=== PATIENT | female | born 1945 | race Caucasian/White ===

== ENCOUNTER 2017-01-10 09:13 | Outpatient (CLI) | payer MEDICARE, OTHER | END 2017-01-10 09:14 | disposition home or self-care (01) | DX: E78.2 Mixed hyperlipidemia (principal); E11.65 Type 2 diabetes mellitus with hyperglycemia ==

== ENCOUNTER 2017-01-26 10:57 | Outpatient (CLI) | payer MEDICARE, OTHER | END 2017-01-26 10:58 | disposition home or self-care (01) | DX: Z78.0 Asymptomatic menopausal state (principal); M85.88 Other specified disorders of bone density and structure, other site ==

== ENCOUNTER 2017-05-28 13:14 | Outpatient (CLI) | payer MEDICARE, OTHER | END 2017-05-28 13:15 | disposition home or self-care (01) | LOC: SC 13:14 | PROVIDERS: ATTEND Internal Medicine Pulmonary Disease | DX: G47.10 Hypersomnia, unspecified (principal); R06.83 Snoring; G47.8 Other sleep disorders | CPT/HCPCS: 99203; G0463; 99212 ==

== ENCOUNTER 2017-06-19 19:38 | Outpatient (CLI) | payer MEDICARE, OTHER | END 2017-06-19 19:39 | disposition home or self-care (01) | LOC: SC 19:38 | PROVIDERS: ATTEND Internal Medicine Pulmonary Disease | DX: G47.33 Obstructive sleep apnea (adult) (pediatric) (principal); G47.61 Periodic limb movement disorder; Z68.24 Body mass index [BMI] 24.0-24.9, adult | CPT/HCPCS: 95810 ==

== ENCOUNTER 2017-07-12 13:12 | Outpatient (CLI) | payer MEDICARE, OTHER | END 2017-07-12 13:13 | disposition home or self-care (01) | LOC: SC 13:12 | PROVIDERS: ATTEND Nurse Practitioner Family | DX: G47.33 Obstructive sleep apnea (adult) (pediatric) (principal); G47.61 Periodic limb movement disorder | CPT/HCPCS: 99214; G0463; 99212 ==

== ENCOUNTER 2017-07-18 11:16 | Outpatient (CLI) | payer MEDICARE, OTHER ==
[2017-07-18 18:52] LABS: CORTISOL 5.9 ug/dL
[2017-07-18 19:02] LABS: TOTAL T3 0.83 ng/mL (0.87-1.78)
[2017-07-18 19:13] LABS: THYROID STIMULATING HORMONE 1.11 uIU/mL (0.34-5.60)
== END 2017-07-18 11:17 | disposition home or self-care (01) ==
LOC: LAB.F 11:16
PROVIDERS: ATTEND Internal Medicine
DX: R53.83 Other fatigue (principal)
CPT/HCPCS: 36415; 82533; 84436; 84439; 84443; 84480; 84481

== ENCOUNTER 2017-08-23 10:50 | Outpatient (CLI) | payer MEDICARE, OTHER | END 2017-08-23 10:51 | disposition home or self-care (01) | LOC: SC 10:50 | PROVIDERS: ATTEND Nurse Practitioner Family | DX: G47.33 Obstructive sleep apnea (adult) (pediatric) (principal) | CPT/HCPCS: 99214; G0463; 99212 ==

== ENCOUNTER 2017-09-20 11:13 | Outpatient (CLI) | payer MEDICARE, OTHER | END 2017-09-20 11:14 | disposition home or self-care (01) | LOC: SC 11:13 | PROVIDERS: ATTEND Nurse Practitioner Family | DX: G47.33 Obstructive sleep apnea (adult) (pediatric) (principal) | CPT/HCPCS: 99214; G0463; 99212 ==

== ENCOUNTER 2018-01-29 14:46 | Outpatient (CLI) | payer MEDICARE, OTHER | END 2018-01-29 14:47 | disposition home or self-care (01) | LOC: SC 14:46 | PROVIDERS: ATTEND Nurse Practitioner Family | DX: G47.33 Obstructive sleep apnea (adult) (pediatric) (principal) | CPT/HCPCS: 99214; G0463; 99212 ==

== ENCOUNTER 2018-03-25 17:54 | Emergency (ER) | payer MEDICARE, OTHER ==
--- NOTE | 2018-03-25 18:41 | ED Physician Documentation ---
PD HPI UPPER EXT INJURY - Stated complaint Stated Complaint: WRIST INJURY - Chief complaint Chief Complaint: Ext Problem - History obtained from History obtained from: Patient - History of Present Illness Location: Left, Elbow, Wrist Type of injury: Fall (tripped over dog leashes and fell to the left, trying to catch fall with left hand.) Where injury occurred: Home Timing - onset: Today Timing - details: Abrupt onset, Still present Improved by: Rest Worsened by: Moving, Palpating Associated symptoms: Swelling. No: Weakness, Numbness Contributing factors: No: Anticoagulated, Prior ortho surgery Similar symptoms before: Has not had sx before Recently seen: Not recently seen Review of Systems Constitutional: denies: Fever Nose: denies: Rhinorrhea / runny nose, Congestion Throat: denies: Sore throat Cardiac: denies: Chest pain / pressure, Palpitations Respiratory: denies: Dyspnea, Cough GI: denies: Abdominal Pain, Nausea, Diarrhea Musculoskeletal: reports: Extremity pain. denies: Neck pain, Back pain Neurologic: denies: Focal weakness, Numbness, Head injury PD PAST MEDICAL HISTORY - Past Medical History Past Medical History: Yes Cardiovascular: High cholesterol Psych: Depression - Present Medications Home Medications: Ambulatory Orders Medication Instructions Recorded Confirmed Alprazolam [Xanax] 0.5 mg PO Q6H PRN #10 tablet 10/21/16 03/25/18 clonazePAM [Clonazepam] 0.25 mg PO BID 10/21/16 03/25/18 Aspirin 325 mg PO 03/25/18 Paroxetine HCl [Paxil] 20 mg PO DAILY 03/25/18 03/25/18 Pravastatin [Pravachol] 40 mg 03/25/18 - Allergies Allergies/Adverse Reactions: Allergies Allergy/AdvReac Type Severity Reaction Status Date / Time cephalexin monohydrate * Allergy Hives Verified 03/25/18 18:08 [From Keflex] Penicillins Allergy Hives Verified 03/25/18 18:08 - Social History Does the pt smoke?: No Smoking Status: Never smoker Does the pt drink ETOH?: No Does the pt have substance abuse?: No - Family History Family history: reports: Non contributory - Immunizations Immunizations are current?: Yes PD ED PE NORMAL - Vitals Vital signs reviewed: Yes - General General: Alert and oriented X 3, No acute distress, Well developed/nourished - HEENT HEENT: Atraumatic - Neck Neck: Supple, no meningeal sign, No bony TTP - Cardiac Cardiac: RRR, No murmur - Respiratory Respiratory: Clear bilaterally - Abdomen Abdomen: Soft, Non tender - Derm Derm: Normal color, Warm and dry - Extremities Extremities: Other (left wrist tender dorsally. Not tender in snuffbox per se. Left elbow with mild effusion and pain with rotational movement of forearm. Hurts for full extension as well. Shoulder not tender. ) - Neuro Neuro: Alert and oriented X 3, No motor deficit, No sensory deficit, Normal speech, Other (good color and pulses distally. ) Results - Vitals Vitals: Oxygen O2 Source Room air - Rads (name of study) wrist Radiology: Prelim report reviewed, EMP read contemporaneously (possible radial styloid fracture, nondipslaced) left elbow Radiology: Prelim report reviewed, EMP read contemporaneously (radial neck impacted without displacement nor angulation. ) PD MEDICAL DECISION MAKING - ED course Complexity details: reviewed results (radial neck impacted without displacement. Will treat with sling. Possible radial styloid fx; will give wrist splint. ), considered differential, d/w patient Departure - Departure Disposition: 01 Home, Self Care Clinical Impression: Fall from slip, trip, or stumble Qualifiers: Encounter type: initial encounter Qualified Code(s): W01.0XXA - Fall on same level from slipping, tripping and stumbling without subsequent striking against object, initial encounter Left wrist sprain Qualifiers: Encounter type: initial encounter Qualified Code(s): S63.502A - Unspecified sprain of left wrist, initial encounter Fracture of radial neck, left, closed Qualifiers: Encounter type: initial encounter Fracture alignment: nondisplaced Qualified Code(s): S52.135A - Nondisplaced fracture of neck of left radius, initial encounter for closed fracture Radial styloid fracture Qualifiers: Encounter type: initial encounter Fracture type: closed Fracture alignment: nondisplaced Laterality: left Qualified Code(s): S52.515A - Nondisplaced fracture of left radial styloid process, initial encounter for closed fracture Condition: Stable Record reviewed to determine appropriate education?: Yes Instructions: ED Fx Radial Head, ED Sprain Wrist Follow-Up: Sheila Medrano MD [Provider Admit Priv/Credential] - Comments: Wrist splint and sling for the arm and wrist to reduce motion and protect the injuries. Slight motion is okay based on comfort but no purposeful lifting, push, full range of motion as yet. Follow-up with orthopedics in about a week to week and a half. Call tomorrow for an appointment. Tylenol or anti- inflammatories such as naproxen or ibuprofen as needed for pains 3 to 4 times a day. Ice and rest for the elbow and wrist tonight to reduce swelling. Discharge Date/Time: 03/25/18 20:18
--- NOTE | 2018-03-25 19:27 | XRAY Report ---
EXAM: LEFT ELBOW RADIOGRAPHY EXAM DATE: 03/25/2018 07:09 PM. CLINICAL HISTORY: Fall, pain. COMPARISON: None. TECHNIQUE: 3 views. FINDINGS: Bones: Subtle nondisplaced impacted fracture of the radial neck. Otherwise unremarkable. Joints: Prominent distention of anterior and posterior fat pads. Soft Tissues: Unremarkable. IMPRESSION: Non-displaced radial neck fracture. [facility] Referring Provider Line: [phone] SITE ID: [id number]
--- NOTE | 2018-03-25 19:30 | XRAY Report ---
EXAM: LEFT WRIST RADIOGRAPHY EXAM DATE: 03/25/2018 07:10 PM. CLINICAL HISTORY: Fall, pain. COMPARISON: None. TECHNIQUE: 3 views. FINDINGS: Bones: Thickening and irregularity of the distal radial metaphysis with small marginal exostoses. Sub tle nondisplaced fracture at the base of the radial styloid process difficult to exclude. Otherwise u nremarkable. Joints: Widening of the distal radial ulnar space compatible with ligamentous disruption, acute versu s chronic. Soft Tissues: Minimal soft tissue swelling. Pronator fat pad not distended. IMPRESSION: Possible nondisplaced radial styloid process fracture versus chronic changes. [facility] Referring Provider Line: [phone] SITE ID: [id number]
[2018-03-25 20:20] VITALS: BP 139/80
== END 2018-03-25 20:18 | disposition home or self-care (01) ==
LOC: ED 17:54
DX: S63.502A Unspecified sprain of left wrist, initial encounter (principal); S52.135A Nondisplaced fracture of neck of left radius, initial encounter for closed fracture; S52.515A Nondisplaced fracture of left radial styloid process, initial encounter for closed fracture; W01.0XXA Fall on same level from slipping, tripping and stumbling without subsequent striking against object, initial encounter; Y92.009 Unspecified place in unspecified non-institutional (private) residence as the place of occurrence of the external cause; Z79.82 Long term (current) use of aspirin
CPT/HCPCS: 99283

== ENCOUNTER 2018-04-30 10:29 | Outpatient (CLI) | payer MEDICARE, OTHER | END 2018-04-30 10:30 | disposition home or self-care (01) | LOC: SC 10:29 | PROVIDERS: ATTEND Nurse Practitioner Family | DX: G47.33 Obstructive sleep apnea (adult) (pediatric) (principal) | CPT/HCPCS: 99214; G0463; 99212 ==

== ENCOUNTER 2018-06-17 08:00 | Outpatient (CLI) | payer MEDICARE, OTHER ==
[2018-06-17 18:02] LABS: BASOPHILS % (AUTO) 0.8 %; EOSINOPHILS # (AUTO) 0.1 10^3/uL (0.0-0.7); EOSINOPHILS % (AUTO) 1.9 %; HGB - HEMOGLOBIN 13.7 g/dL (12.0-16.0); LYMPHOCYTES # (AUTO) 1.4 10^3/uL (1.5-3.5); LYMPHOCYTES % (AUTO) 26.3 %; MEAN CORPUSCULAR HGB CONC 33.7 g/dL (32.0-36.0); MEAN CORPUSCULAR VOLUME 89.1 fL (81.0-99.0); MEAN PLATELET VOLUME 7.9 fL (7.9-10.8); MONOCYTES # (AUTO) 0.4 10^3/uL (0.0-1.0); NEUTROPHILS # (AUTO) 3.3 10^3/uL (1.5-6.6); PLT - PLATELET COUNT 210 10^3/uL (130-450); RED BLOOD COUNT 4.57 10^6/uL (4.20-5.40); RED CELL DISTRIBUTION WIDTH 15.2 % (12.0-15.0); WHITE BLOOD COUNT 5.1 x10^3/uL (4.8-10.8)
[2018-06-17 19:13] LABS: ALBUMIN 3.7 g/dL (3.2-5.5); ALBUMIN/GLOBULIN RATIO 1.4 (1.0-2.2); ALKALINE PHOSPHATASE 63 IU/L (42-121); ALT ALANINE AMINOTRANSFERASE 35 IU/L (10-60); AST ASPARTATE AMINOTRANSFERASE 31 IU/L (10-42); BILIRUBIN,TOTAL 0.7 mg/dL (0.2-1.0); BUN - BLOOD UREA NITROGEN 15 mg/dL (6-20); CALCIUM 9.7 mg/dL (8.5-10.3); CARBON DIOXIDE - CO2 29 mmol/L (21-32); CHLORIDE 104 mmol/L (101-111); CHOL/HDL RATIO 4.2 (<4.4); CHOLESTEROL 226 mg/dL; CREATININE 0.9 mg/dL (0.4-1.0); GFR - MDRD 62 (>89); GLUCOSE 95 mg/dL (70-100); HDL CHOLESTEROL 54 mg/dL; LDL CHOLESTEROL,CALCULATED 142 mg/dL; LDL/HDL RATIO 2.6 (<4.4); SODIUM 137 mmol/L (135-145); TOTAL PROTEIN 6.4 g/dL (6.7-8.2); VLDL CHOLESTEROL 30 mg/dL
[2018-06-17 20:25] LABS: HB2 TOTAL 14.5 g/dL; HEMOGLOBIN A1C 0.56 g/dL; HEMOGLOBIN A1C % 5.7 % (4.6-6.2)
== END 2018-06-17 08:01 | disposition home or self-care (01) ==
LOC: LAB.F 08:00
PROVIDERS: ATTEND Internal Medicine
DX: E78.5 Hyperlipidemia, unspecified (principal); Z79.899 Other long term (current) drug therapy; E11.65 Type 2 diabetes mellitus with hyperglycemia; M85.80 Other specified disorders of bone density and structure, unspecified site; E88.81 Metabolic syndrome and other insulin resistance; R53.83 Other fatigue
CPT/HCPCS: 36415; 80053; 80061; 82306; 83036; 83721; 85025

== ENCOUNTER 2018-07-04 11:32 | Outpatient (CLI) | payer MEDICARE, OTHER | END 2018-07-04 11:33 | disposition home or self-care (01) | LOC: DI.N 11:32 | PROVIDERS: ATTEND Internal Medicine | DX: Z12.31 Encounter for screening mammogram for malignant neoplasm of breast (principal) | CPT/HCPCS: 77067 ==

== ENCOUNTER 2018-08-19 11:36 | Outpatient (CLI) | payer MEDICARE, OTHER ==
[2018-08-19 18:23] LABS: ALT ALANINE AMINOTRANSFERASE 40 IU/L (10-60); AST ASPARTATE AMINOTRANSFERASE 37 IU/L (10-42); LDL CHOLESTEROL,DIRECT 62 mg/dL
== END 2018-08-19 11:37 | disposition home or self-care (01) ==
LOC: LAB.F 11:36
PROVIDERS: ATTEND Internal Medicine
DX: E78.5 Hyperlipidemia, unspecified (principal); Z79.899 Other long term (current) drug therapy
CPT/HCPCS: 36415; 83721; 84450; 84460

== ENCOUNTER 2018-12-21 20:43 | Emergency (ER) | payer MEDICARE, OTHER ==
[2018-12-21] MEDS ORDERED: KETOROLAC 60 MG/2 ML VIAL IM STA (21:24)
[2018-12-21] MEDS ORDERED: DEXAMETHASONE 10 MG/ML VIAL PO STA (21:24)
--- NOTE | 2018-12-21 21:28 | ED Physician Documentation ---
PD HPI TRUNK INJURY - Stated complaint Stated Complaint: GLF/L SIDE THORACOLUMBAR PX - Chief complaint Chief Complaint: Trauma Ch/Bk - History obtained from History obtained from: Patient, Family - History of Present Illness Location: Posterior chest, Mid back Type of injury: Fall Timing - onset: How many days ago (3) Timing - duration: Days (3) Timing - details: Abrupt onset, Still present Quality: Pain, Sharp Improved by: Rest, Immobilization Worsened by: Moving, Palpating Associated symtptoms: Discoloration. No: Weakness, Numbness, Tingling Contributing factors: No: Anticoagulated Where injury occured: Home Similar symptoms before: Has not had sx before Recently seen: Not recently seen - Additional information Additional information: Previously well 73-year-old female was in her home tying her shoe with her foot up on something and she fell over onto her left side injuring her left lower back. She has a bruise to the area and today she had a sneeze and had sudden onset of severe pain. She has been unable to get comfortable since the sneezing episode. She does state that she felt the pain was a bit worse this morning when she woke up but that she has been able to sleep the past 3 nights. Review of Systems Constitutional: denies: Fever, Chills, Myalgias Eyes: denies: Decreased vision Ears: denies: Ear pain Nose: denies: Rhinorrhea / runny nose, Congestion Throat: denies: Sore throat Cardiac: reports: Chest pain / pressure. denies: Palpitations, Pedal edema, Calf pain Respiratory: denies: Dyspnea, Cough GI: denies: Abdominal Pain, Nausea, Vomiting, Constipation, Diarrhea : denies: Dysuria, Frequency Skin: denies: Rash Musculoskeletal: reports: Back pain. denies: Neck pain, Extremity pain PD PAST MEDICAL HISTORY - Past Medical History Cardiovascular: High cholesterol Psych: Depression - Present Medications Home Medications: Ambulatory Orders Medication Instructions Recorded Confirmed Alprazolam [Xanax] 0.5 mg PO Q6H PRN #10 tablet 10/21/16 03/25/18 clonazePAM [Clonazepam] 0.25 mg PO BID 10/21/16 03/25/18 Aspirin 325 mg PO 03/25/18 Paroxetine HCl [Paxil] 20 mg PO DAILY 03/25/18 03/25/18 Pravastatin [Pravachol] 40 mg 03/25/18 Hydrocodone/Acetaminophen 1 - 2 each PO Q6H PRN #14 tablet 12/21/18 [Hydrocodon-Acetaminophen 5-325] - Allergies Allergies/Adverse Reactions: Allergies Allergy/AdvReac Type Severity Reaction Status Date / Time cephalexin monohydrate * Allergy Hives Verified 12/21/18 20:56 [From Keflex] Penicillins Allergy Hives Verified 12/21/18 20:56 - Social History Does the pt smoke?: No Smoking Status: Never smoker Does the pt drink ETOH?: No Does the pt have substance abuse?: No - Immunizations Immunizations are current?: Yes PD ED PE NORMAL - Vitals Vital signs reviewed: Yes (hypertensive ) - General General: Alert and oriented X 3, No acute distress, Well developed/nourished - HEENT HEENT: Atraumatic, PERRL, EOMI - Neck Neck: Supple, no meningeal sign, No bony TTP - Cardiac Cardiac: RRR, No murmur - Respiratory Respiratory: No respiratory distress, Clear bilaterally, Other (There is a bruise with ecchymosis consistent with 3 days dating over the left lower ribs posteriorly. The area is markedly tender to palpation. 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, No motor deficit, No sensory deficit, Normal speech Eye Opening: Spontaneous Motor: Obeys Commands Verbal: Oriented GCS Score: 15 - Psych Psych: Normal mood, Normal affect Results - Vitals Vitals: Vital Signs - 24 hr 12/21/18 20:45 Temperature 36.0 C L Heart Rate 67 Respiratory 16 Rate Blood Pressure 143/94 H O2 Saturation 96 Oxygen O2 Source Room air - Rads (name of study) left ribs and PA chest Radiology: Prelim report reviewed (Impression: Negative chest and rib radiography.), EMP read indepedently, See rad report PD MEDICAL DECISION MAKING - ED course Complexity details: reviewed results, re-evaluated patient, considered differential, d/w patient, d/w family ED course: 73-year-old female with acute contusion to the chest wall 3 days ago has marked increase in her pain with a sneezing episode and does not have evidence of a fracture on plain film x-ray of the chest. She is administered Toradol IM and dexamethasone and we will place her on some pain medication. Departure - Departure Disposition: 01 Home, Self Care Clinical Impression: Chest wall contusion Qualifiers: Encounter type: initial encounter Laterality: left Qualified Code(s): S20.212A - Contusion of left front wall of thorax, initial encounter Condition: Stable Instructions: ED Contusion Rib, ED Contusion Vs Minor Fx Rib Follow-Up: Kayden León MD [Primary Care Provider] - Prescriptions: Hydrocodone/Acetaminophen [Hydrocodon-Acetaminophen 5-325] 1 - 2 each PO Q6H PRN #14 tablet PRN Reason: pain
--- NOTE | 2018-12-21 21:57 | XRAY Report ---
Reason: fall L postero-lateral rib pain Procedure Date: 12/21/2018 Accession Number: [id number] / [id number] Procedure: XR - Ribs w/PA Chest LT CPT Code: FULL RESULT: EXAM: LEFT RIB RADIOGRAPHY EXAM DATE: 12/21/2018 09:48 PM. CLINICAL HISTORY: Fall, pain COMPARISON: None. TECHNIQUE: 1 view of the chest and 2 views of the ribs. FINDINGS: Bones: Normal. No fracture or bone lesion. Lungs: No focal opacities. No pneumothorax. No pleural effusions. Mediastinum: Heart and mediastinal contours are unremarkable. Other: None. IMPRESSION: Negative chest and rib radiography. [facility]
[2018-12-21] MEDS ORDERED: HYDROcod/ACET 5/325 Prepack 4 PO STA (22:04)
[2018-12-21 22:39] VITALS: BP 152/74
== END 2018-12-21 22:30 | disposition home or self-care (01) ==
LOC: ED 20:43
DX: S20.212A Contusion of left front wall of thorax, initial encounter (principal); W19.XXXA Unspecified fall, initial encounter; Y92.009 Unspecified place in unspecified non-institutional (private) residence as the place of occurrence of the external cause; E78.00 Pure hypercholesterolemia, unspecified
CPT/HCPCS: 96372; 99283

== ENCOUNTER 2019-05-06 05:58 | Day surgery (SDC) | payer MEDICARE, OTHER ==
[2019-05-06] MEDS ORDERED: LACTATED RINGERS 1,000 ML IV ONE ×2 (06:35→08:02)
--- NOTE | 2019-05-06 07:12 | ANESTHESIA ---
Pre-Anesthesia VS, & Labs - Diagnosis right middle trigger finger - Procedure right middle trigger finger release Vital Signs: Temp Pulse Resp BP Pulse Ox 36.2 C L 62 12 158/84 H 95 05/06/19 06:36 05/06/19 06:36 05/06/19 06:36 05/06/19 06:36 05/06/19 06:36 Height 5 ft 6 in Weight (kg) 81 kg Body Mass Index 26.6 - NPO >8 hours - Is Patient ?: Not Applicable Home Medications and Allergies Home Medications: Ambulatory Orders Cholecalciferol [Vitamin D3] 5,000 unit PO DAILY 05/01/19 Mirtazapine 7.5 mg PO QPM 05/01/19 Rosuvastatin Calcium 40 mg PO QPM 05/01/19 hydrOXYzine HCl [Hydroxyzine HCl] 10 mg PO PRN PRN 05/01/19 Aspirin 325 mg PO DAILY 03/25/18 Paroxetine HCl [Paxil] 20 mg PO DAILY 03/25/18 Cholecalciferol [Vitamin D3] 5,000 unit PO DAILY 05/01/19 Mirtazapine 7.5 mg PO QPM 05/01/19 Rosuvastatin Calcium 40 mg PO QPM 05/01/19 hydrOXYzine HCl [Hydroxyzine HCl] 10 mg PO PRN PRN 05/01/19 Allergies/Adverse Reactions: Allergies Allergy/AdvReac Type Severity Reaction Status Date / Time cephalexin monohydrate * Allergy Hives Verified 12/21/18 20:56 [From Keflex] Penicillins Allergy Hives Verified 12/21/18 20:56 metformin AdvReac Nausea Verified 05/01/19 12:09 Anes History & Medical History - Anesthetic History Anesthesia Complications: reports: Post-Operative Nausea/Vomiting Family history of Anesthesia Complications: Denies Family history of Malignant Hyperthermia: Denies - Medical History Cardiovascular: reports: High cholesterol Pulmonary: reports: Sleep apnea Gastrointestinal: reports: None Urinary: reports: None Musculoskeletal: reports: Osteoarthritis Endocrine/Autoimmune: reports: HyPOthyroidism Skin: reports: Eczema Smoking Status: Never smoker - Surgical History General: Appendectomy, Colonoscopy Eyes Ears Nose Throat (EENT): Cataracts, Tonsil/Adenoidectomy Gynecologic: Hysterectomy, Other Orthopedic: Arthroscopic surgery, Other Exam General: Alert, Oriented x3, Cooperative, No acute distress Dental: Other (bridge) Mouth Openin Fingerbreadth Neck Mobility: Normal Mallampati classification: II Thyromental Distance: 4-6 cm Respiratory: Lungs clear, Normal breath sounds, No respiratory distress, No accessory muscle use Cardiovascular: Regular rate, Normal S1, Normal S2, No murmurs Plan Anesthesia Type: MAC Consent for Procedure(s) Verified and Reviewed: Yes Code Status: Attempt Resuscitation ASA classification: 2-Mild systemic disease Is this case an emergency?: No
[2019-05-06] MEDS ORDERED: MIDAZOLAM 2 MG/2 ML VIAL IVP ONE (07:30)
[2019-05-06] MEDS ORDERED: fentaNYL 100 MCG/2 ML VIAL IVP ONE (07:30)
[2019-05-06] MEDS ORDERED: LIDOCAINE-MPF 2% 5 ML VIAL IM ONE (07:30)
[2019-05-06] MEDS ORDERED: PROPOFOL 200 MG/20 ML VIAL IVP ONE (07:30)
[2019-05-06] MEDS ORDERED: methylPREDNISolone ACETATE 40 MG/ML VIAL ONE (07:36)
[2019-05-06] MEDS ORDERED: BUPIVACAINE 0.25%-EPI 1:200000 PF 30 ML VIAL SUBQ ONE ×2 (07:47→07:48)
[2019-05-06] MEDS ORDERED: HYDROcod/ACETAM 5/325 MG TABLET PO PRN (08:06)
[2019-05-06 08:29] VITALS: BP 120/60
== END 2019-05-06 05:59 | disposition home or self-care (01) ==
LOC: SDS 05:58
PROVIDERS: ATTEND Orthopaedic Surgery
PROC: 3E0U33Z Introduction of Anti-inflammatory into Joints, Percutaneous Approach (ICD-10-PCS; 2019-05-06)
PROC: 0LN70ZZ Release Right Hand Tendon, Open Approach (ICD-10-PCS; principal; 2019-05-06 07:30)
DX: M65.332 Trigger finger, left middle finger (principal); M19.041 Primary osteoarthritis, right hand; E78.00 Pure hypercholesterolemia, unspecified; G47.30 Sleep apnea, unspecified; E03.9 Hypothyroidism, unspecified; F41.9 Anxiety disorder, unspecified; E55.9 Vitamin D deficiency, unspecified; M85.80 Other specified disorders of bone density and structure, unspecified site; Z79.82 Long term (current) use of aspirin; Z87.891 Personal history of nicotine dependence

== ENCOUNTER 2019-06-18 11:54 | Emergency (ER) | payer MEDICARE, OTHER ==
--- NOTE | 2019-06-18 12:30 | ED Physician Documentation ---
History of Present Illness - Stated complaint Stated Complaint: FEET SWELLING - Chief complaint Chief Complaint: Cardiac - History obtained from History obtained from: Patient - History of Present Illness Timing: How many days ago (3) Pain level max: 0 Pain level now: 0 - Additonal information Additional information: 73-year-old female presents to the emergency department stating that her blood pressure has been higher than usual over the past few days. She normally checks it every few months but has been checking it several times a day recently. She also states that her ankles are more swollen than usual. She was on a keto diet to lose weight but stopped this recently. She is asymptomatic here. Nothing makes it better or worse Review of Systems Constitutional: denies: Fever, Chills Nose: denies: Rhinorrhea / runny nose, Congestion Throat: denies: Sore throat Cardiac: denies: Chest pain / pressure, Palpitations Respiratory: denies: Cough GI: denies: Nausea, Vomiting, Diarrhea Skin: denies: Rash Musculoskeletal: denies: Neck pain, Back pain Neurologic: denies: Headache PD PAST MEDICAL HISTORY - Past Medical History Cardiovascular: High cholesterol Respiratory: Sleep apnea Endocrine/Autoimmune: HyPOthyroidism GI: None : None HEENT: None Psych: Depression, Anxiety, Panic attacks Musculoskeletal: Osteoarthritis Derm: Eczema - Past Surgical History General: Appendectomy, Colonoscopy Ortho: Arthroscopic surgery, 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, Other HEENT: Cataracts, Tonsil/Adenoidectomy - Present Medications Home Medications: Ambulatory Orders Medication Instructions Recorded Confirmed Aspirin 325 mg PO DAILY 03/25/18 05/01/19 Paroxetine HCl [Paxil] 20 mg PO DAILY 03/25/18 05/06/19 Cholecalciferol [Vitamin D3] 5,000 unit PO DAILY 05/01/19 05/06/19 Mirtazapine 7.5 mg PO QPM 05/01/19 05/06/19 Rosuvastatin Calcium 40 mg PO QPM 05/01/19 05/06/19 hydrOXYzine HCl [Hydroxyzine HCl] 10 mg PO PRN PRN 05/01/19 05/06/19 - Allergies Allergies/Adverse Reactions: Allergies Allergy/AdvReac Type Severity Reaction Status Date / Time cephalexin monohydrate * Allergy Hives Verified 06/18/19 12:05 [From Keflex] Penicillins Allergy Hives Verified 06/18/19 12:05 metformin AdvReac Nausea Verified 06/18/19 12:05 - Social History Does the pt smoke?: No Smoking Status: Never smoker Does the pt drink ETOH?: No Does the pt have substance abuse?: No - Immunizations Immunizations are current?: Yes PD ED PE NORMAL - Vitals Vital signs reviewed: Yes - General General: Alert and oriented X 3, No acute distress, Well developed/nourished - HEENT HEENT: PERRL, Moist mucous membranes - Neck Neck: Supple, no meningeal sign - Cardiac Cardiac: RRR, Strong equal pulses - Respiratory Respiratory: No respiratory distress, Clear bilaterally - Abdomen Abdomen: Soft, Non tender, Non distended - Derm Derm: Warm and dry - Extremities Extremities: Other (trace edema BLE) - Neuro Neuro: Alert and oriented X 3 - Psych Psych: Normal mood, Normal affect Results - Vitals Vitals: Vital Signs - 24 hr 06/18/19 12:03 Temperature 36.8 C Heart Rate 64 Respiratory 18 Rate Blood Pressure 137/72 H O2 Saturation 98 Oxygen O2 Source Room air PD MEDICAL DECISION MAKING - ED course Complexity details: considered differential, d/w patient, d/w family ED course: 73-year-old female with a symptomatic hypertension and trace peripheral edema. No acute emergency medical condition at this time. We will have her follow-up with her doctor for further care. Patient counseled regarding signs and symptoms for which I believe and urgent re-evaluation would be necessary. Patient with good understanding of and agreement to plan and is comfortable going home at this time This document was made in part using voice recognition software. While efforts are made to proofread this document, sound alike and grammatical errors may occur. Departure - Departure Disposition: 01 Home, Self Care Clinical Impression: Peripheral edema Hypertension Qualifiers: Hypertension type: unspecified Qualified Code(s): I10 - Essential (primary) hypertension Condition: Good Instructions: ED Hypertension Poss, ED Edema Legs Bilateral Follow-Up: Charla Harmon ARNP, [employer] [Primary Care Provider] - Comments: Return if you worsen. Follow-up with your doctor for further care. Your blood pressure has decreased today. There is an adam called [employer] you can download if you would like more information on a plant based diet by the physicians committee for responsible medicine.
[2019-06-18 12:50] VITALS: BP 154/96
== END 2019-06-18 12:30 | disposition home or self-care (01) ==
LOC: ED 11:54
DX: I10 Essential (primary) hypertension (principal); R60.0 Localized edema
CPT/HCPCS: 99282; 99284

== ENCOUNTER 2021-01-24 00:05 | Emergency (ER) | payer MEDICARE, OTHER ==
[2021-01-24 00:24] VITALS: BP 162/85
[2021-01-24] MEDS ORDERED: IBUPROFEN 600 MG TABLET PO STA (00:25)
--- NOTE | 2021-01-24 01:53 | ED Physician Documentation ---
History of Present Illness - Stated complaint Stated Complaint: R ARM PX - Chief complaint Chief Complaint: Trauma Hd/Nk - History obtained from History obtained from: Patient - Additonal information Additional information: 75-year-old woman on baby aspirin only presents status post mechanical fall from standing after tripping over her dog late this evening onto her right face and head falling to the outstretched hand on the right side. Patient sustained sudden onset pain to the right shoulder that is constant, worse with movement, radiating down the arm, aching, severe, associated with mild swelling. She also bumped her right cheekbone but denies pain. Denies LOC or head trauma. Denies vision changes or other neuro deficits. Review of Systems Ten Systems: 10 systems reviewed and negative Eyes: denies: Loss of vision Skin: reports: Abrasion (s) Musculoskeletal: reports: Extremity pain, Joint pain. 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, Other HEENT: Cataracts, Tonsil/Adenoidectomy - Present Medications Home Medications: Ambulatory Orders Medication Instructions Recorded Confirmed Aspirin 325 mg PO DAILY 03/25/18 05/01/19 PARoxetine HCl [Paxil] 20 mg PO DAILY 03/25/18 05/06/19 Cholecalciferol [Vitamin D3] 5,000 unit PO DAILY 05/01/19 05/06/19 Mirtazapine 7.5 mg PO QPM 05/01/19 05/06/19 Rosuvastatin Calcium 40 mg PO QPM 05/01/19 05/06/19 hydrOXYzine HCL [Hydroxyzine HCl] 10 mg PO PRN PRN 05/01/19 05/06/19 oxyCODONE/ACET 5/325 [Percocet 5 1 each PO Q4-6H PRN #9 tablet 01/24/21 mg/325 mg] - Allergies Allergies/Adverse Reactions: Allergies Allergy/AdvReac Type Severity Reaction Status Date / Time cephalexin monohydrate * Allergy Hives Verified 01/24/21 00:24 [From Keflex] Penicillins Allergy Hives Verified 01/24/21 00:24 metformin AdvReac Nausea Verified 01/24/21 00:24 - Social History Does the pt smoke?: No Smoking Status: Never smoker Does the pt drink ETOH?: No Does the pt have substance abuse?: No - Immunizations Immunizations are current?: Yes PD ED PE NORMAL - Vitals Vital signs reviewed: Yes - General General: Alert and oriented X 3, No acute distress, Well developed/nourished - HEENT HEENT: Atraumatic, PERRL, EOMI - Neck Neck: No bony TTP - Cardiac Cardiac: RRR - Respiratory Respiratory: No respiratory distress, Clear bilaterally - Abdomen Abdomen: Non tender, Non distended - Back Back: No spinal TTP - Derm Derm: Normal color, Warm and dry - Extremities Extremities: Other (R shoulder tender with rom. R proximal humerus ttp. 2+ BL radial pulses. normal strength, rom, cap refill, sensation) - Neuro Neuro: Alert and oriented X 3, No motor deficit, No sensory deficit - Psych Psych: Normal mood, Normal affect Results - Vitals Vitals: Vital Signs - 24 hr 01/24/21 00:05 Temperature 36.0 C L Heart Rate 63 Respiratory 18 Rate Blood Pressure 162/85 H O2 Saturation 100 Oxygen O2 Source Room air PD MEDICAL DECISION MAKING - ED course ED course: 75-year-old woman presents with proximal humerus fracture, no neuro deficits on exam. We will have her follow-up with orthopedics in 1 week. Coaptation splint and sling applied. Strict return precautions given. Departure - Departure Disposition: 01 Home, Self Care Clinical Impression: Proximal humerus fracture, Fall, Abrasion of face Condition: Stable Instructions: Humerus Fx Follow-Up: Skip Lorenzo MD [Provider Admit Priv/Credential] - Prescriptions: oxyCODONE/ACET 5/325 [Percocet 5 mg/325 mg] 1 each PO Q4-6H PRN #9 tablet PRN Reason: Pain Comments: You were seen in the emergency department for a fall. You have a right shoulder fracture at the humerus, which is the large bone connecting your shoulder to your elbow. A splint was applied and you should continue to wear it and a sling until you follow-up with orthopedics next week. It is possible that you will need surgery, but sometimes these breaks (fractures) can heal without operations. Take ibuprofen 3 pills every 6 hours as needed for pain and put ice on it for 20 minutes every hour. Try to keep the shoulder still as much as possible. Return to the emergency department if you experience any numbness in your fingers or inability move the fingers. Return for any new or worsening symptoms or other concerns.
--- NOTE | 2021-01-24 08:57 | XRAY Report ---
PROCEDURE: Shoulder 2 View RT INDICATIONS: shoulder pain TECHNIQUE: 2 views of the shoulder were acquired. COMPARISON: None. FINDINGS: Bones: Comminuted fracture involving the right humeral head and neck. Visualized ribs appear intact. Soft tissues: No suspicious soft tissue calcifications. IMPRESSION: Proximal right humerus fracture. Reviewed by: Shannen Leyva MD, PhD on 01/24/2021 8:56 AM PDT Approved by: Shannen Leyva MD, PhD on 01/24/2021 8:56 AM PDT Station ID: [id number]
--- NOTE | 2021-01-24 08:58 | XRAY Report ---
PROCEDURE: Humerus RT INDICATIONS: foosh TECHNIQUE: 3 views of the humerus were acquired. COMPARISON: None FINDINGS: Bones: Comminuted fracture involving the right humeral head and neck. Distal fracture fragment is dis placed medially and proximally. Soft tissues: No suspicious soft tissue calcifications. IMPRESSION: Comminuted proximal right humerus fracture. Reviewed by: Shannen Leyva MD, PhD on 01/24/2021 8:57 AM PDT Approved by: Shannen Leyva MD, PhD on 01/24/2021 8:57 AM PDT Station ID: [id number]
--- NOTE | 2021-01-24 08:59 | XRAY Report ---
PROCEDURE: Forearm RT INDICATIONS: foosh TECHNIQUE: 2 views of the forearm were acquired. COMPARISON: None FINDINGS: Bones: No fractures or dislocations. No suspicious bony lesions. Mild radiocarpal joint osteoarthri tis. Soft tissues: No suspicious soft tissue calcifications or masses. IMPRESSION: No fracture. No acute osseous lesion. If there persistent symptoms or continued clinical concern for pathology, then repeat plain film radiographs (7-10 days) or advanced imaging (CT, MR, bone scan) berenice uld be considered for further evaluation. Reviewed by: Shannen Leyva MD, PhD on 01/24/2021 8:57 AM PDT Approved by: Shannen Leyva MD, PhD on 01/24/2021 8:57 AM PDT Station ID: [id number]
== END 2021-01-24 02:43 | disposition home or self-care (01) ==
LOC: ED 00:05
DX: S42.201A Unspecified fracture of upper end of right humerus, initial encounter for closed fracture (principal); W01.0XXA Fall on same level from slipping, tripping and stumbling without subsequent striking against object, initial encounter
CPT/HCPCS: 73030; 73060; 73090; 99283; 99284; A9270

== ENCOUNTER 2021-01-31 07:00 | Outpatient (CLI) | payer MEDICARE, OTHER ==
--- NOTE | 2021-01-31 14:04 | XRAY Report ---
PROCEDURE: Shoulder 3 View RT INDICATIONS: RIGHT PROXIMAL HUMERUS FRACTURE TECHNIQUE: 3 views of the shoulder were acquired. COMPARISON: X-ray shoulder 01/24/2021 FINDINGS: Bones: There is a mildly displaced comminuted fracture of the right humeral head and neck. Fracture d oes extend to the greater tuberosity. Alignment is stable compared to prior exam. No suspicious bony lesions. Visualized ribs appear intact. Soft tissues: No suspicious soft tissue calcifications. IMPRESSION: Right humeral head and neck fracture with stable alignment. No definitive visualized hea ling. Reviewed by: Lori Espinoza MD on 01/31/2021 2:03 PM PDT Approved by: Lori Espinoza MD on 01/31/2021 2:03 PM PDT Station ID: [id number]
== END 2021-01-31 23:59 | disposition home or self-care (01) ==
LOC: DI.N 07:00
PROVIDERS: ATTEND Physician Assistant
DX: S42.291A Other displaced fracture of upper end of right humerus, initial encounter for closed fracture (principal)

== ENCOUNTER 2021-02-14 07:00 | Outpatient (CLI) | payer MEDICARE, OTHER ==
--- NOTE | 2021-02-14 12:37 | XRAY Report ---
PROCEDURE: Shoulder 3 View RT INDICATIONS: OTHER DISPLACED FX OF PROXIMAL R HUMERUS TECHNIQUE: 4 views of the shoulder were acquired. COMPARISON: 01/31/2021 comparison plain films FINDINGS: Bones: No previously unidentified fractures or dislocations. No suspicious bony lesions. Visualize d ribs appear intact. There is mild interval healing along the fracture planes at the proximal humer us. Soft tissues: No suspicious soft tissue calcifications. IMPRESSION: Healing humeral head and neck region fractures, with reference to the comparison study f rom 01/31/2021. Stable mild displacement. Reviewed by: Teo Willett MD on 02/14/2021 12:36 PM PDT Approved by: Teo Willett MD on 02/14/2021 12:36 PM PDT Station ID: [id number]
== END 2021-02-14 23:59 | disposition home or self-care (01) ==
LOC: DI.N 07:00
PROVIDERS: ATTEND Physician Assistant
DX: S42.291D Other displaced fracture of upper end of right humerus, subsequent encounter for fracture with routine healing (principal)

== ENCOUNTER 2021-03-14 07:00 | Outpatient (CLI) | payer MEDICARE, OTHER ==
--- NOTE | 2021-03-14 17:56 | XRAY Report ---
PROCEDURE: Shoulder 3 View RT INDICATIONS: DISPLACED FX OF PROXIMAL R HUMERUS TECHNIQUE: 4 views of the shoulder were acquired. COMPARISON: Prior acute trauma plain film imaging 02/14/2021.. FINDINGS: Bones: No previously unidentified fractures or dislocations. Continued healing across the fracture p lanes proximal right humerus. No suspicious bony lesions. Visualized ribs appear intact. Soft tissues: No suspicious soft tissue calcifications. IMPRESSION: No change in mild malalignment across fracture planes. Healing of the previously comminu tomasz right proximal humerus neck and head fractures. Reviewed by: Teo Willett MD on 03/14/2021 5:55 PM PDT Approved by: Teo Willett MD on 03/14/2021 5:55 PM PDT Station ID: [id number]
== END 2021-03-14 23:59 | disposition home or self-care (01) ==
LOC: DI.N 07:00
PROVIDERS: ATTEND Physician Assistant
DX: S42.291D Other displaced fracture of upper end of right humerus, subsequent encounter for fracture with routine healing (principal)

== ENCOUNTER 2021-12-14 10:54 | Outpatient (CLI) | payer MEDICARE, OTHER ==
--- NOTE | 2021-12-15 08:41 | Mammography Report ---
BILATERAL DIGITAL SCREENING MAMMOGRAM 3D/2D: 12/14/2021 CLINICAL: Routine screening. Family history of breast cancer. Comparison is made to exams dated: 07/04/2018 mammogram, 11/02/2016 mammogram - [facility], and 10/20/2013 mammogram - [facility]. The tissue of both breasts is predomi nantly fatty. There is a benign calcification in the left breast. No significant masses, calcifications, or other findings are seen in either breast. There has been no significant interval change. IMPRESSION: BENIGN There is no mammographic evidence of malignancy. A 1 year screening mammogram is recommended. This exam was interpreted at Station ID: [id number]. NOTE: For mammograms, a report in lay terms will be sent to the patient. Approximately 15% of breast malignancies will not be visualized mammographically. In the management of a palpable breast mass, a negative mammogram must not discourage biopsy of a clinically suspicious lesion. Electronically Signed By: Tj Rubin acr/penrad:12/14/2021 15:39:21 ACR BI-RADS Category 2: Benign Finding(s) 3342F PARENCHYMAL PATTERN: (F) - The breast(s) demonstrate(s) diffuse fatty replacement. BI-RADS CATEGORY: (2) - 2 RECOMMENDATION: (ANNUAL) - Recommend routine annual screening mammography. [id number] 1 year screening LATERALITY: (B)
== END 2021-12-14 10:55 | disposition home or self-care (01) ==
LOC: DI.S 10:54
DX: Z12.31 Encounter for screening mammogram for malignant neoplasm of breast (principal); Z80.3 Family history of malignant neoplasm of breast

== ENCOUNTER 2022-11-15 10:40 | Emergency (ER) | payer MEDICARE, OTHER ==
[2022-11-15 10:59] VITALS: BP 132/79
--- NOTE | 2022-11-15 11:53 | XRAY Report ---
PROCEDURE: Chest 2 View X-Ray INDICATIONS: cough TECHNIQUE: 2 views of the chest were acquired. COMPARISON: None. FINDINGS: Surgical changes and devices: None. Lungs and pleura: No pleural effusions or pneumothorax. Lungs are clear. Mediastinum: Mediastinal contours are normal. Heart size is normal. Bones and chest wall: No suspicious bony abnormalities. Soft tissues appear unremarkable. IMPRESSION: No acute cardiopulmonary disease. Reviewed by: Pedro Hardwick MD on 11/15/2022 11:51 AM [facility] Approved by: Pedro Hardwick MD on 11/15/2022 11:51 AM [facility] Station ID: [id number]
--- NOTE | 2022-11-15 13:16 | ED Physician Documentation ---
PD HPI URI - Stated complaint Stated Complaint: COUGH/SOA - Chief complaint Chief Complaint: Resp - History obtained from History obtained from: Patient - Additional information Additional information: Patient is a 77-year-old female presenting for evaluation of a nonproductive cough that she has had for 1 month.She states that occasionally she has some clear sputum but overall it is been dry.She has not had fevers. She does not feel chest pain. She does not feel short of breath. She walks 3 to 5 miles every day. She occasionally states that when she is out for her walks her breathing feels a little bit heavier but she has not had to stop her walks and does not feel slower with her walks. She is active for COVID and has taken home COVID test which are negative.She denies any other medical conditions.Nothing was different about her symptoms today other than they have been persistent for the past month. Review of Systems Constitutional: denies: Fever Cardiac: denies: Chest pain / pressure Respiratory: reports: Cough. denies: Dyspnea GI: denies: Abdominal Pain : denies: Dysuria Musculoskeletal: denies: Back pain Neurologic: denies: Headache PD PAST MEDICAL HISTORY - Past Medical History Cardiovascular: High cholesterol Respiratory: Sleep apnea Endocrine/Autoimmune: HyPOthyroidism GI: None : None HEENT: None Psych: Depression, Anxiety, Panic attacks Musculoskeletal: Osteoarthritis Derm: Eczema - Past Surgical History General: Appendectomy, Colonoscopy Ortho: Arthroscopic surgery, Other /[employer]: Hysterectomy, Other HEENT: Cataracts, Tonsil/Adenoidectomy - Present Medications Home Medications: Ambulatory Orders Medication Instructions Recorded Confirmed Aspirin 325 mg PO DAILY 03/25/18 05/01/19 PARoxetine HCL [Paxil] 20 mg PO DAILY 03/25/18 05/06/19 Cholecalciferol [Vitamin D3] 5,000 unit PO DAILY 05/01/19 05/06/19 Mirtazapine 7.5 mg PO QPM 05/01/19 05/06/19 Rosuvastatin Calcium 40 mg PO QPM 05/01/19 05/06/19 hydrOXYzine HCL [Hydroxyzine HCl] 10 mg PO PRN PRN 05/01/19 05/06/19 oxyCODONE/ACET 5/325 [Percocet 5 1 each PO Q4-6H PRN #9 tablet 01/24/21 mg/325 mg] - Allergies Allergies/Adverse Reactions: Allergies Allergy/AdvReac Type Severity Reaction Status Date / Time cephalexin monohydrate * Allergy Hives Verified 11/15/22 10:59 [From Keflex] Penicillins Allergy Hives Verified 11/15/22 10:59 metformin AdvReac Nausea Verified 11/15/22 10:59 - Social History Does the pt smoke?: No Smoking Status: Never smoker Does the pt drink ETOH?: No Does the pt have substance abuse?: No - Immunizations Immunizations are current?: Yes PD ED PE NORMAL - General General: Alert and oriented X 3, No acute distress, Well developed/nourished - HEENT HEENT: Atraumatic, Moist mucous membranes, Pharynx benign, Other (No sinus tenderness) - Neck Neck: Supple, no meningeal sign - Cardiac Cardiac: RRR, No murmur - Respiratory Respiratory: No respiratory distress, Clear bilaterally - Abdomen Abdomen: Soft, Non tender - Derm Derm: Warm and dry - Extremities Extremities: No edema - Neuro Neuro: Normal speech Results - Vitals Vitals: Vital Signs - 24 hr 11/15/22 10:55 Temperature 36.5 C Heart Rate 81 Respiratory 16 Rate Blood Pressure 132/79 H O2 Saturation 96 Oxygen O2 Source Room air PD Medical Decision Making - ED course Complexity details: reviewed results, d/w patient ED course: Patient with nonproductive cough for 1 month. Her vital signs are stable. Her lung sounds are clear. She is able to take deep breaths without triggering a cough. Her chest x-ray is clear without signs of pneumonia. She has no sinus tenderness or fullness to suggest bacterial sinusitis.I did offer a respiratory PCR which patient declined. She is aware that it would not necessarily change her management given the timing of her symptoms. She is comfortable with continuing supportive care. She denies having chest pain or symptoms to suggest ACS. No symptoms to suggest PE. Patient counseled on concerning symptoms to return for. Departure - Departure Disposition: 01 Home, Self Care Clinical Impression: Non-productive cough Condition: Stable Instructions: ED Viral Syndrome Comments: Your chest x-ray is negative and does not show signs of pneumonia. Your symptoms are likely related to a viral illness. We are seeing a number of respiratory viruses currently. I would continue with supportive care which includes saline sprays in the nose to loosen up congestion, making sure you stay hydrated. If you have any worsening symptoms please return to the emergency department. Discharge Date/Time: 11/15/22 13:40
== END 2022-11-15 13:40 | disposition home or self-care (01) ==
LOC: ED 10:40
DX: R05.9 Cough, unspecified (principal)
CPT/HCPCS: 99283